=== PATIENT | female | born 1985 | race Caucasian/White ===

== ENCOUNTER → 2018-04-17 14:01 | Outpatient (CLI) | payer OTHER, SELFPAY ==
[2018-05-06 11:29] LABS: HPV APTIMA, High Risk Negative
== END ==
PROVIDERS: Visit Provider Obstetrics & Gynecology
DX: Z12.4 Encounter for screening for malignant neoplasm of cervix (principal)
CPT/HCPCS: 88175; G0145

== ENCOUNTER → 2018-04-23 08:37 | Outpatient (CLI) | payer OTHER, SELFPAY ==
--- NOTE | 2018-04-23 08:42 | BI_ITS ---
MAMMOGRAPHY - BILATERAL DIAGNOSTIC REASON FOR EXAM: Female, 33 years old. Right breast lump. PERTINENT HISTORY: Non-contributory. TECHNIQUE: Digital bilateral breast steve (3D mammographic acquisition) in the CC and MLO projections. 2-D mediolateral oblique (MLO) and craniocaudad (CC) views of both breasts were obtained. CAD: Full Field Digital Mammography with Computer Added Detection was performed. COMPARISON: None. Baseline examination. FINDINGS: Breast Composition: The breasts are extremely dense, which lowers the sensitivity of mammography. There are no dominant masses or suspicious calcifications. No other significant abnormalities are identified. BI/DIAG MAMM W/CAD, BILAT IMPRESSION: Negative diagnostic mammogram. With the patient's history of a palpable abnormality in the superior lateral retroareolar region of the right breast, correlation with ultrasound is recommended. ASSESSMENT CATEGORY: BIRADS Category 0: Incomplete. Need additional imaging evaluation. A letter regarding these results will be sent to the patient by the facility within 30 days. Approximately 10% of breast cancers are not detected by mammography. A normal mammogram should not delay biopsy of a clinically suspicious abnormality. Electronically Signed: Fabrizio Peter MD at 9:51 EDT Tel [phone], Service support ,
--- NOTE | 2018-04-23 08:43 | US_ITS ---
STUDY: ULTRASOUND BREAST - RIGHT REASON FOR EXAM: Female, 33 years old. Palpable lump in the right breast. TECHNIQUE: Axial and longitudinal images of the RIGHT breast were performed with a high resolution ultrasound transducer. COMPARISON: Comparison is made with prior mammogram done earlier today. FINDINGS: RIGHT Breast: There is a 3 mm x 3 mm x 3 mm hypoechoic nodule at 11:00 is in the breast at 1 cm from the nipple. This is not a typical cyst. A biopsy is recommended for further evaluation. US/Breast Limited Unilateral IMPRESSION: The palpable abnormality corresponds to a 3 mm x 3 mm x 3 mm well-defined hypoechoic solid nodule. A biopsy is recommended for further evaluation. ASSESSMENT CATEGORY: BIRADS Category 4: Suspicious - Biopsy Should Be Considered. A letter regarding these results will be sent to the patient by the facility within 30 days. Electronically Signed: Fabrizio Peter MD at 10:42 EDT Tel [phone], Service support ,
== END ==
PROVIDERS: Visit Provider Obstetrics & Gynecology
DX: N63.10 Unspecified lump in the right breast, unspecified quadrant (principal)
CPT/HCPCS: 76642; 77062; 77066; G0279

== ENCOUNTER → 2018-04-28 15:05 | Outpatient (CLI) | payer OTHER, SELFPAY ==
--- NOTE | 2018-04-28 13:00 | BRBX_PTH ---
PATIENT: LUZ PHILIPPE LOC: [facility] U#:[id number] AGE/SX: 40/F ROOM: RE04/28/[address]: Dr. Duke Jarquin MD : 1985 BED: DIS: SPEC #: [id number] RECD: 04/28/18 15:03 STATUS: KERRY SHARAN #: [id number] BENJAMIN: 04/28/18 13:[address]: Duke Jarquin DEPT: SURGICAL PATHOLOGY RECD BY: Suraj Hoyos ENTERED: 04/29/18 04:55 SP TYPE: BREAST BX OTHR DR: No Primary Care Phys Tissues: Right breast, NOS Procedures: Surgery Specimen Level IV HEADER OPERATION: Right breast core biopsy PRE-OP DIAGNOSIS: Right breast abnormal ultrasound TISSUE SUBMITTED: Right breast tissue ISCHEMIC TIME: <1 minute FIXATION TIME: 6 hours MICROSCOPIC DIAGNOSIS Right breast, core biopsy: Fibroadenomatous change suggestive of fibroadenoma. AM:vinod 7/3/18 COMMENT Case has been reviewed in consultation with Dr. Kam who concurs with the above diagnosis. IDC:SJ MICROSCOPIC DESCRIPTION Slides are reviewed. GROSS DESCRIPTION Received in fixative is one container labeled with the patient's name and designated right breast. The specimen consists of multiple elongated dwyer-yellow fibroadipose tissue that in aggregate measure 1 x 0.3 x 0.1 cm. The specimen is totally submitted in one cassette. GABRIELLE:vinod 04/28/18 TC: 5 CPT: 59163
== END ==
PROVIDERS: Visit Provider Surgery
DX: R92.8 Other abnormal and inconclusive findings on diagnostic imaging of breast (principal)
CPT/HCPCS: 88305

== ENCOUNTER → 2018-10-22 10:58 | Outpatient (CLI) | payer OTHER, SELFPAY ==
[2018-10-09 09:34] VITALS: BMI 23.8
--- NOTE | 2018-10-22 11:04 | US_ITS ---
STUDY: ULTRASOUND BREAST - RIGHT REASON FOR EXAM: Female, 33 years old. TECHNIQUE: Axial and longitudinal images of the RIGHT breast were performed with a high resolution ultrasound transducer. COMPARISON: April 23, 2018 FINDINGS: RIGHT Breast: There is a lesion in the upper outer quadrant around 11:00 it measures 0.4 x 0.4 x 0.2 cm) and inferior slightly different in shape than the previous examination of as recommended in the previous ultrasound biopsy is recommended is recommended no other lesion noted Posterior Enhancement: US/Breast Limited Unilateral IMPRESSION: Evidence of hypoechoic nodule with the measurements described above at 11:00 on the right side for which biopsy is recommended. Electronically Signed: Muna Montes, at 14:20 EST Tel , Service support ,
== END ==
PROVIDERS: Family Provider Internal Medicine; PCP Internal Medicine; Referring Provider Surgery; Visit Provider Surgery
DX: Z98.890 Other specified postprocedural states (principal)
CPT/HCPCS: 76642

== ENCOUNTER → 2019-03-30 | Outpatient (CLI) | payer OTHER, SELFPAY ==
[2018-10-09 09:34] VITALS: BMI 23.8
--- NOTE | 2019-03-30 09:18 | US_ITS ---
STUDY: ULTRASOUND BREAST - RIGHT REASON FOR EXAM: Female, 33 years old. Follow-up for right breast biopsy. TECHNIQUE: Axial and longitudinal images of the RIGHT breast were performed with a high resolution ultrasound transducer. COMPARISON: Comparison is made with prior ultrasound dated October 22, 2018. FINDINGS: RIGHT Breast: The 4 mm x 3 mm x 2 mm hypoechoic nodular density at the 11:00 position of the breast at 1 cm from nipple has been biopsied. A tissue clip marker is seen within it. US/Breast Limited Unilateral IMPRESSION: A tissue clip marker is seen within the biopsied nodular density at the 11:00 position of the breast at 1 cm from the nipple. ASSESSMENT CATEGORY: BIRADS Category 2: Benign. A letter regarding these results will be sent to the patient by the facility within 30 days. Electronically Signed: Fabrizio Peter, at 10:44 EDT , Service support ,
== END | disposition home or self-care (01) ==
PROVIDERS: Family Provider Internal Medicine; PCP Internal Medicine; Referring Provider Surgery; Visit Provider Surgery
DX: R92.8 Other abnormal and inconclusive findings on diagnostic imaging of breast (principal)
CPT/HCPCS: 76642